=== PATIENT | female | born 1960 | race Caucasian/White ===

== ENCOUNTER 2017-04-25 21:40 | Inpatient (IN) ==
[2017-04-25] MEDS ORDERED: MORPHINE 2 MG/1 ML SYRINGE IV STA (22:15)
[2017-04-25] MEDS ORDERED: ONDANSETRON 4 MG/2 ML VIAL IV STA (22:15)
[2017-04-25] MEDS ORDERED: LORazepam 2 MG/1 ML VIAL IV ONE (22:15)
[2017-04-25 22:37] LABS: Basophils # 0.1 10*3/uL (0.0-0.2); Basophils % 0.4 % (0.0-0.8); Hemoglobin 15.9 GM/DL (12.0-16.0); Immature Granulocytes % 0.5 %; Immature Granulocytes Absolute 0.06 #; Lymphocytes % 8.4 % (21.3-54.2); Mean Corpuscular HGB Conc 35.3 GM/DL (32-36); Mean Corpuscular Hemoglobin 33 PG (27-34); Mean Corpuscular Volume 93.9 FL (87-102); Mean Platelet Volume 10.6 FL (9.6-12.0); Monocytes # 1.5 10*3/uL (0.11-0.8); Monocytes % 12.1 % (1.7-12.7); Neutrophils # 9.8 10*3/uL (1.4-7.4); Neutrophils % 78.6 % (38.7-73.9); Platelet Count 257 T/CUMM (130-400); Red Blood Count 4.79 MC/CUMM (3.8-5.5); Red Cell Distribution Width 12.7 % (9.3-17.3); White Blood Count 12.4 T/CUMM (4-12)
[2017-04-25] MEDS ORDERED: ONDANSETRON 4 MG/2 ML VIAL ONE (22:40)
[2017-04-25] MEDS ORDERED: LORazepam 2 MG/1 ML VIAL ONE (22:41)
[2017-04-25] MEDS ORDERED: MORPHINE 2 MG/1 ML SYRINGE ONE ×2 (22:41→22:44)
--- NOTE | 2017-04-25 22:43 | Emergency Department Note ---
Pradeep Tirado Hilary, am scribing for, and in the presence of, Justin Childers MD 22:32. Alvarado Tirado Robert M, MD, personally performed the services described in this documentation, ascribed by Daisy Fernández in my presence, and it is both accurate and complete . Arrival - Arrival Chief Complaint: Alcohol Intoxication Stated Complaint: ALCOHOL POISIONING ED Nursing Triage Note: Patient to triage with c/o N/V for the past 24 hours and muscle cramps. patient admits to drinking liqour heavily for the past 2 weeks. Patient has a history of alcohol abuse and inpatient treatment at [facility]. Mode of Arrival: Wheelchair Limitations: No Limitations Source: Patient, RN Notes Reviewed Time Seen by Provider: 04/25/17 22:09 - History of Present Illness HPI Narrative: Pt is a 56 y/o white female presenting to the ED with c/o abdominal pain and drinking problems which has been a chronic problem. Pt states that 2 days ago she started having abdominal pain, cramping and throwing up. She reports that she normally drinks a pint or more a day but her last drink was on 2 days ago. No other complaints or problems stated in the ED. Onset (ago): day(s) Consistency: constant Severity: mild Severity scale (1-10): 1 Quality: cramping Date of Last Menstrual Period: menopause Allergies/Adverse Reactions: Allergies Allergy/AdvReac Type Severity Reaction Status Date / Time No Known Allergies Allergy Unverified 04/25/17 21:49 Home Medications: Home Medications Medication Instructions Recorded Confirmed Type No Known Home Medications [No 04/25/17 04/25/17 History Known Home Medications] Review of System - Review of System 12 point system: reviewed and no additional remarkable complaints except as stated - Review of System Constitutional: Absent: fever Gastrointestinal: Present: abdominal pain, nausea, vomiting Psychiatric: Present: other (alcohol addiction) Medical,Surgical,& Family Hx - Medical History Cardio: History of: Hypertension Psychological: History of: Psychiatric/Substance Abuse Tx (alcohol) Gastrointestinal: History of: Pancreatitis - Social History Smoking Status: Never smoker Frequency of Alcohol Use: Frequently Type of Drug Use: Marijuana Exam Vital Signs: Vital Signs Temperature 97.0 F L 04/25/17 21:43 Pulse Rate 131 H 04/25/17 21:43 Respiratory Rate 16 04/25/17 22:06 Blood Pressure 113/91 04/25/17 21:43 O2 Sat by Pulse Oximetry 100 04/25/17 21:43 - General General appearance: alert, in no apparent distress, other (labile mood) - Head Head exam: Present: atraumatic, normocephalic - Eye Eye exam: Present: normal appearance, PERRL, EOMI - ENT ENT exam: Present: mucous membranes moist, TM's normal bilaterally. Absent: mucous membranes dry - Neck Neck exam: Present: full ROM, trachea midline. Absent: tenderness - Chest Chest inspection: Present: symmetric chest wall rise. Absent: tenderness - Respiratory Respiratory exam: Present: normal lung sounds bilaterally. Absent: respiratory distress - Cardiovascular Cardiovascular exam: Present: regular rate, normal rhythm, normal heart sounds. Absent: murmur, rubs, gallop - Abdominal Exam Abdominal exam: Present: soft, tenderness (midepigastic tenderness), guarding, normal bowel sounds. Absent: distention - Extremities Exam Extremities exam: Present: full ROM. Absent: tenderness - Back Exam Back exam: Present: full ROM. Absent: tenderness - Neurological Exam Neurological exam: Present: alert, oriented X3, CN II-XII intact. Absent: motor sensory deficit - Psychiatric Psychiatric exam: Present: normal affect, normal mood - Skin Skin exam: Present: warm, dry, intact, normal color. Absent: rash Course - Reevaluation(s) Reevaluation #1: [place] came and evaluated the patient. She refused to go. She remained shaky , tachycardic, and seems to be in early DTs although she is not having hallucinations yet. I will admit her to the hospitalist service. Time: 23:53 Results - Labs CBC & BMP: 04/25/17 22:30 04/25/17 22:30 Lab Results: I have reviewed the patients labs Labs: Lab Results WBC 12.4 T/CUMM (4-12) H 04/25/17 22:30 RBC 4.79 MC/CUMM (3.8-5.5) 04/25/17 22:30 Hgb 15.9 GM/DL (12.0-16.0) 04/25/17 22:30 Hct 45.0 VOL% (35.7-47.0) 04/25/17 22:30 MCV 93.9 FL (87-102) 04/25/17 22:30 MCH 33 PG (27-34) 04/25/17: MCHC 35.3 GM/DL (32-36) 04/25/17 22: RDW 12.7 % (9.3-17.3) 04/25/17:30 Plt Count 257 T/CUMM (130-400) 04/25/17: MPV 10.6 FL (9.6-12.0) 04/25/17 22:30 Neut % (Auto) 78.6 % (38.7-73.9) H 04/25/17 22: Lymph % (Auto) 8.4 % (21.3-54.2) L 04/25/17: [place] % (Auto) 12.1 % (1.7-12.7) 04/25/17: Eos % (Auto) 0.0 % (0.00-10.9) 04/25/17: Baso % (Auto) 0.4 % (0.0-0.8) 04/25/17: Neut # (Auto) 9.8 10*3/uL (1.4-7.4) H 04/25/17 22:30 Lymph # (Auto) 1.0 10*3/uL (1.4-4.0) L 04/25/17:30 [place] # (Auto) 1.5 10*3/uL (0.11-0.8) H 04/25/17:30 Eos # (Auto) 0.0 10*3/uL (0.0-0.87) 04/25/17: Baso # (Auto) 0.1 10*3/uL (0.0-0.2) 04/25/17: Immature Gran % 0.5 % 04/25/17: Nucleated RBC % 0.0 /100WBC 04/25/17: Immature Gran # 0.06 # 04/25/17: Nucleated RBCs # 0.00 10*3/uL 04/25/17:30 Platelet Estimate Normal 04/25/17 22:30 Anisocytosis 06/13/17 22:30 Sodium 133 MMOL/L (136-145) L 04/25/17 22:30 Potassium 3.6 MMOL/L (3.5-5.1) 04/25/17 22:30 Chloride 79 MMOL/L (98-107) L 04/25/17 22:30 Carbon Dioxide 31 MMOL/L (21-32) 04/25/17 22:30 Anion Gap 26.6 MMOL/L (5.0-15.0) H 04/25/17 22:30 BUN 34 MG/DL (7-18) H 04/25/17 22:30 Creatinine 1.70 MG/DL (0.55-1.02) H 04/25/17 22:30 GFR Calculation 33 ML/MIN 04/25/17:30 BUN/Creatinine Ratio 20.00 RATIO (6.00-20.00) 04/25/17 22:30 Glucose 146 MG/DL (74-106) H 04/25/17 22:30 Calculated Osmolality 276.4 MOS/KG (273-304) 04/25/17 22:30 Calcium 10.9 MG/DL (8.5-10.1) H 04/25/17 22:30 Magnesium 2.0 MG/DL (1.8-2.4) 04/25/17 22:30 Amylase 89 U/L (25-115) 04/25/17 22:30 Lipase 246.0 U/L (73-393) 04/25/17 22:30 Serum Alcohol < 15 MG/DL (<15) L 04/25/17 22:30 Disposition Clinical Impression: Alcohol withdrawal syndrome Case discussed with: patient, patient's family Disposition: Still a Patient Condition: Stable Time of Disposition: 23:57
[2017-04-25 22:57] LABS: Amylase 89 U/L (25-115); Blood Urea Nitrogen 34 MG/DL (7-18); Calcium 10.9 MG/DL (8.5-10.1); Glucose 146 MG/DL (74-106); Osmolality,Calculated 276.4 MOS/KG (273-304); Potassium 3.6 MMOL/L (3.5-5.1); Sodium 133 MMOL/L (136-145)
[2017-04-25 23:44] LABS: Platelet Estimate Normal
[2017-04-25] MEDS ORDERED: chlordiazePOXIDE 25 MG CAPSULE PO ONE (23:51)
[2017-04-26] MEDS ORDERED: THIAMINE INJ 100 MG, FOLIC ACID INJ 1 MG, MAGNESIUM SULF INJ 2 GM, MULTIVITAMIN INJ 10 ... IV ONE (00:02)
--- NOTE | 2017-04-26 00:24 | Hospitalist History & Physical ---
Assessment and Plan (1) Tachycardia Status: Acute Assessment and plan: Patient will be monitored in the intensive care unit. My concern is that this could be impending delirium tremens. Her cognitive function at this point is acceptable. She has already been started on Librium that will be continued on the unit. When I on her mental status. Stated about her liver function. If there is preexistent cirrhosis and portal shunting we should be careful with aggressive use of benzodiazepines because she can be pushed into portosystemic encephalopathy. Current Visit: Yes (2) Alcoholism Status: Acute Assessment and plan: Patient needs rehab. I have talked to her for some time in the emergency room. She is very much aware of this because she has had a rehab in the past. I will refer her to case management and social security benefits interviewer. Dr. Childers in the emergency room admission sending her to [facility] but she was reluctant to do so. Last rehab unit she went to was outside [place]. Current Visit: Yes (3) Acute kidney injury Status: Acute Assessment and plan: We will follow kidney function with rehydration that was giving her. Is now on a banana bag using D5 normal saline at 100 mL/h. Repeat BMP and magnesium in the morning alongside a repeat CBC. Current Visit: Yes (4) Alcohol withdrawal syndrome Status: Acute Assessment and plan: Patient will be put on Librium 25 mg 3 times a day after receiving 50 mg once. Again as mentioned above we should keep an eye on her mental status while she is on Librium. Should also have seizure precautions. She has had a seizure in the past but she is not taking any medications for these. Some mention of hypertension for which is not taking any medications on her blood pressure is not elevated. Current Visit: Yes (5) Abdominal pain Status: Acute Assessment and plan: This is mostly in the epigastrium on the right upper quadrant. Whether this is ulcers or liver issues is not clear. I will check liver function panel. Also check prothrombin time and PTT. Alcoholic hepatitis is a possibility given the extent of drinking a pint or more of vodka every day we should done until Monday when she could not drink anymore because of nausea vomiting and abdominal pain. She does not have any indices of pancreatitis at this time. Patient can be fed a regular diet as tolerated. Current Visit: Yes History of Present Illness Chief complaint: Abdominal pain/nausea/alcoholism with withdrawal syndrome History of present illness: Ms. Pearson is a 56 year old female female presenting to the ED with c/o abdominal pain and drinking problems which has been a chronic problem. Pt states that 2 days ago she started having abdominal pain, cramping and throwing up. She reports that she normally drinks a pint or more a day but her last drink was on 2 days ago. No other complaints or problems in the meantime. Patient is requesting to be put on IV fluids. She has been talked to regarding going to [facility] but she was reluctant to do so. However she is noted to be quite tachycardic and tremulous which is obviously the first signs of delirium tremens. Patient has no sounding psychotic at this time. Home Medications Medication Instructions Recorded Confirmed Type No Known Home Medications [No 04/25/17 04/25/17 History Known Home Medications] Allergies Allergy/AdvReac Type Severity Reaction Status Date / Time No Known Allergies Allergy Unverified 04/25/17 21:49 Medical,Surgical,& Family Hx - Medical History Cardio: History of: Hypertension Psychological: History of: Psychiatric/Substance Abuse Tx (alcohol) Gastrointestinal: History of: Pancreatitis - Social History Smoking Status: Never smoker Frequency of Alcohol Use: Frequently Type of Drug Use: Marijuana Review of systems: 12 point system assessment was done. Patient look to be well developed and preserved she is quite tremulous but makes sense in what she is saying. She is very tachycardic she does look slightly disheveled. He is under the chief complaint and history of presenting illness is what stands out in the review of system. Again a 12 point system assessment was done. Exam - Constitutional Vitals: Period Temp Pulse Resp BP Sys/Wilson Pulse Ox Last 24 Hr 97 F-97.0 F 131-131 16-16 113-113/91-91 100 General appearance: normal weight, other (Rather disheveled and tremulous) - Head Head exam: Present: normocephalic, atraumatic - Eye Eye exam: Present: EOMI, other (Anicteric sclera no conjunctival petechia) Pupils: Present: LANNY - ENT ENT exam: Present: normal exam, normal oropharynx - Neck Neck exam: Present: other (Supple neck midline trachea no adenopathy no thyromegaly) - Respiratory Respiratory exam: Present: other (Coarse bronchial sounds heard in the right midlung though the chest x-ray does not look suspicious for consolidation. No wheezing no rales no pleural rub) - Cardiovascular Cardiovascular exam: Present: other (Tachycardia with sinus control gallops no murmur) - GI/Abdominal GI/Abdominal exam: Present: normal bowel sounds, soft, other (Diffuse discomfort on palpation no masses felt in the abdomen no abdominal wall ecchymosis) - Extremities Exam Extremities exam: Present: full ROM, other (No acrocyanosis, clubbing of the digits) - Back Exam Back exam: Present: normal inspection - Neurological Exam Neurological exam: Present: alert, oriented X3, CN II-XII intact, other (Quite tremulous, her voice is also tremulous) - Psychiatric Psychiatric exam: Present: anxious - Skin Skin exam: Present: normal color, warm, dry, other (And came to general hygiene) Results - Labs CBC & BMP: 04/25/17 22:30 04/25/17 22:30 Lab Results: I have reviewed the past 24 hour labs (Noted a leukocytosis noted with a creatinine 1.7; I do not have a difference number)
[2017-04-26 00:40] LABS: Albumin 5.5 G/DL (3.4-5.0); Bilirubin,Direct 0.5 MG/DL (0.0-0.20); Bilirubin,Indirect 2.2 MG/DL (0.0-1.0); Bilirubin,Total 2.7 MG/DL (0.2-1.0); Total Protein 8.5 G/DL (6.4-8.3)
[2017-04-26] MEDS ORDERED: THIAMINE INJ 100 MG, FOLIC ACID INJ 1 MG, MULTIVITAMIN INJ 10 ML in DEXTROSE 5% NACL 0.... IV ONE (03:00)
[2017-04-26 03:51] LABS: HIV Antigen/Antibody Result Nonreactive (Nonreactive)
[2017-04-26 06:13] LABS: Basophils % 0.2 % (0.0-0.8); Hematocrit 42.5 VOL% (35.7-47.0); Hemoglobin 15.2 GM/DL (12.0-16.0); Immature Granulocytes Absolute 0.12 #; Lymphocytes # 1.2 10*3/uL (1.4-4.0); Lymphocytes % 9.4 % (21.3-54.2); Mean Corpuscular HGB Conc 35.8 GM/DL (32-36); Mean Corpuscular Hemoglobin 33 PG (27-34); Mean Platelet Volume 10.4 FL (9.6-12.0); Monocytes # 1.5 10*3/uL (0.11-0.8); Monocytes % 11.9 % (1.7-12.7); Neutrophils # 9.5 10*3/uL (1.4-7.4); Neutrophils % 77.5 % (38.7-73.9); Platelet Count 221 T/CUMM (130-400); Red Blood Count 4.57 MC/CUMM (3.8-5.5); Red Cell Distribution Width 12.8 % (9.3-17.3); White Blood Count 12.2 T/CUMM (4-12)
--- NOTE | 2017-04-26 06:14 | XRay Report ---
Portable chest Date: 04/26/2017 Clinical history: Chest pain, shortness of breath Comparison: 02/09/2012 Technique: Portable AP sitting chest Findings: The heart is normal in size. Chronic scarring in the lungs with minimal atelectasis at the lung bases. Calcified granulomata/nodes. No acute osseous findings. Impression: No acute cardiopulmonary pathology identified. PROCEDURE INTERPRETED AT [facility] DEPARTMENT OF RADIOLOGY Final Report Signed by: Dr. Ale Humphreys
--- NOTE | 2017-04-26 06:17 | XRay Report ---
Exam: XR KUB Date: 04/25/2017 10:15 PM Comparison: None Indication: Generalized abdominal pain Technique:[Supine abdomen] Findings: Nonobstructed bowel gas pattern. IUD projecting in the area of the uterus with nonspecific calcifications in the pelvis. Minimal dextroscoliosis of the lumbar spine with no acute osseous findings. Impression: No definite acute abdominal pathology identified. IUD. PROCEDURE INTERPRETED AT [facility] DEPARTMENT OF RADIOLOGY Final Report Signed by: Dr. Ale Humphreys
[2017-04-26 06:44] LABS: Magnesium 2.2 MG/DL (1.8-2.4); Osmolality,Calculated 277.5 MOS/KG (273-304); Potassium 3.1 MMOL/L (3.5-5.1)
[2017-04-26] MEDS: PANTOPRAZOLE 20 MG TABLET PO SCH (08:40)
[2017-04-26] MEDS ORDERED: chlordiazePOXIDE 25 MG CAPSULE PO SCH (09:00)
[2017-04-26] MEDS ORDERED: POTASSIUM CHLORIDE 20 MEQ TABLET PO ONE (09:06)
[2017-04-26] MEDS ORDERED: SODIUM CHLORIDE 0.9% 1,000 ML IV ONE (09:08)
[2017-04-26] MEDS ORDERED: PHENOL 1.4% THROAT SPRAY 177 ML BOTTLE PO PRN (09:11)
[2017-04-26] MEDS ORDERED: chlordiazePOXIDE 10 MG CAPSULE PO PRN (09:12)
[2017-04-26] MEDS ORDERED: LORazepam 2 MG/1 ML VIAL IV PRN (10:54)
[2017-04-26 13:33] LABS: Apearance,Urine Slightly Hazy (Clear); Bilirubin,Urine Negative (Negative); Blood, Urine Negative (Negative); Glucose,Urine (UA) Negative (Negative); Hyaline Casts,Urine 55 /LPF (0-3); Ketones,Urine 20 mg/dL (Negative); Mucus,Urine Occasional /LPF (Occasional); Nitrite,Urine Negative (Negative); Protein,Urine 100 MG/DL; RBC,Urine 2 /HPF (0-4); Squamous Epithelial Cell,Urine Occasional /HPF (0-10); Urine Color Yellow (Yellow); Urine Specific Gravity 1.018 (1.001-1.035); Urine Urobilinogen < 2.0 EU/DL (0.2-1.0); WBC,Urine 22 /HPF (0-6)
[2017-04-26] MEDS: chlordiazePOXIDE 10 MG CAPSULE PO SCH ×2 (15:10→21:02)
[2017-04-26] MEDS: cefTRIAXone 1,000 MG in SODIUM CHLORIDE 0.9% 100 ML IV SCH (17:38)
[2017-04-27 05:35] LABS: Basophils % 0.4 % (0.0-0.8); Eosinophils # 0.1 10*3/uL (0.0-0.87); Hematocrit 41.8 VOL% (35.7-47.0); Hemoglobin 14.3 GM/DL (12.0-16.0); Immature Granulocytes % 0.4 %; Immature Granulocytes Absolute 0.03 #; Lymphocytes # 2.1 10*3/uL (1.4-4.0); Lymphocytes % 26.1 % (21.3-54.2); Mean Corpuscular HGB Conc 34.2 GM/DL (32-36); Mean Corpuscular Hemoglobin 33 PG (27-34); Mean Corpuscular Volume 95.9 FL (87-102); Mean Platelet Volume 10.7 FL (9.6-12.0); Monocytes % 11.9 % (1.7-12.7); Neutrophils # 4.9 10*3/uL (1.4-7.4); Neutrophils % 60.2 % (38.7-73.9); Platelet Count 171 T/CUMM (130-400); Red Blood Count 4.36 MC/CUMM (3.8-5.5); Red Cell Distribution Width 12.7 % (9.3-17.3); White Blood Count 8.1 T/CUMM (4-12)
[2017-04-27 06:07] LABS: Albumin 3.7 G/DL (3.4-5.0); Bilirubin,Total 2.1 MG/DL (0.2-1.0); Potassium 3.1 MMOL/L (3.5-5.1); Total Protein 6.1 G/DL (6.4-8.3)
[2017-04-27] MEDS ORDERED: POTASSIUM CHLORIDE 20 MEQ TABLET PO PRN (06:26)
--- NOTE | 2017-04-27 09:28 | Hospitalist Progress Note ---
Assessment and Plan (1) Alcohol withdrawal syndrome Status: Acute Assessment and plan: On scheduled librium Last drink was Monday She has had DTs in the past Current Visit: Yes (2) Tachycardia Status: Resolved Current Visit: Yes (3) Alcoholism Status: Acute Assessment and plan: Patient could benefit from rehab social work assisting Current Visit: Yes (4) Acute kidney injury Status: Acute Assessment and plan: Resolved with IV hydration Current Visit: Yes (5) Abdominal pain Status: Acute Current Visit: Yes (6) Urinary tract infection Status: Acute Assessment and plan: Continue rocephin F/u urine culture Current Visit: Yes (7) Hypokalemia Status: Acute Assessment and plan: Replacing Current Visit: Yes Hospitalist: Subjective Interval history: No acute events overnight. Abdominal pain is improving. Unable to sleep due to headache. Exam - Constitutional Vitals: Period Temp Pulse Resp BP Sys/Wilson Pulse Ox Last 24 Hr 96.8 F-99.4 F 76-96 13-20 109-135/76-95 93-100 General appearance: normal weight - Head Head exam: Present: normocephalic, atraumatic - Eye Eye exam: Present: EOMI Pupils: Present: LANNY - ENT ENT exam: Present: normal exam - Neck Neck exam: Present: normal inspection - Respiratory Respiratory exam: Present: clear to auscultation bilaterally. Absent: rhonchi, wheezes - Cardiovascular Cardiovascular exam: Present: regular rate and rhythm - GI/Abdominal GI/Abdominal exam: Present: normal bowel sounds, soft. Absent: tenderness, rebound - Extremities Exam Extremities exam: Present: normal inspection - Back Exam Back exam: Present: normal inspection - Neurological Exam Neurological exam: Present: alert, oriented X3 - Psychiatric Psychiatric exam: Present: normal affect, normal mood - Skin Skin exam: Present: warm, intact Results - Labs CBC & BMP: 04/27/17 04:59 04/27/17 04:59
[2017-04-27] MEDS: chlordiazePOXIDE 10 MG CAPSULE PO SCH ×3 (10:31→20:37)
[2017-04-27] MEDS ORDERED: ACETAMINOPHEN 325 MG TABLET PO PRN (10:31)
[2017-04-27] MEDS: THIAMINE 100 MG TABLET PO SCH (12:05)
[2017-04-27] MEDS: PANTOPRAZOLE 20 MG TABLET PO SCH (12:06)
[2017-04-27] MEDS: cefTRIAXone 1,000 MG in SODIUM CHLORIDE 0.9% 100 ML IV SCH (16:08)
[2017-04-28 06:26] LABS: Basophils % 0.6 % (0.0-0.8); Eosinophils # 0.1 10*3/uL (0.0-0.87); Eosinophils % 1.6 % (0.00-10.9); Hematocrit 42.2 VOL% (35.7-47.0); Hemoglobin 14.4 GM/DL (12.0-16.0); Immature Granulocytes % 0.8 %; Immature Granulocytes Absolute 0.05 #; Lymphocytes # 1.8 10*3/uL (1.4-4.0); Lymphocytes % 29.3 % (21.3-54.2); Mean Corpuscular HGB Conc 34.1 GM/DL (32-36); Mean Corpuscular Hemoglobin 33 PG (27-34); Mean Corpuscular Volume 96.3 FL (87-102); Mean Platelet Volume 10.8 FL (9.6-12.0); Monocytes # 0.7 10*3/uL (0.11-0.8); Monocytes % 11.5 % (1.7-12.7); Neutrophils # 3.5 10*3/uL (1.4-7.4); Neutrophils % 56.2 % (38.7-73.9); Platelet Count 147 T/CUMM (130-400); Red Blood Count 4.38 MC/CUMM (3.8-5.5); Red Cell Distribution Width 12.1 % (9.3-17.3); White Blood Count 6.3 T/CUMM (4-12)
[2017-04-28 06:59] LABS: Calcium 9.3 MG/DL (8.5-10.1); Osmolality,Calculated 272.7 MOS/KG (273-304); Potassium 3.2 MMOL/L (3.5-5.1)
[2017-04-28] MEDS: chlordiazePOXIDE 10 MG CAPSULE PO SCH ×2 (09:28→14:48)
[2017-04-28] MEDS: THIAMINE 100 MG TABLET PO SCH (09:28)
[2017-04-28] MEDS: PANTOPRAZOLE 20 MG TABLET PO SCH (09:28)
[2017-04-28] MEDS ORDERED: POTASSIUM CHLORIDE 20 MEQ TABLET PO PRN (09:43)
[2017-04-28] MEDS: POTASSIUM CHLORIDE 20 MEQ TABLET PO PRN ×4 (10:30→17:05)
--- NOTE | 2017-04-28 15:17 | Discharge Summary ---
Hospital Course - Hospital Course Hospital Course: Patient was admitted on the above admit date for monitoring of possible delirium tremens associated with alcohol withdrawal syndrome. She was admitted to the ICU for monitoring and started on IV fluids with thiamine folate and multivitamin supplementation. She was additionally initiated on Librium as needed. She remained stable from a hemodynamic standpoint without any documentation of hypertension nor tachycardia while admitted. Alcohol cessation and rehab was discussed with the patient and was recommended to consult [facility] for further assistance however the patient's insurance [employer] would not cover the treatment provided by [facility]. As a result patient states that she would need to discuss with her other alternatives as he has not been eager to help financially due to failures of other outpatient programs in the past. She states that she is ready to go home and further have this discussion with her on the day of discharge she has remained hemodynamically stable she is cognitively intact without any signs of psychosis. She has not required scheduled doses of Librium but has had 3 doses since admission. She continues to have some mild tremors of the bilateral hands however per the patient this has markedly improved. Additionally, she was found to have a positive urine cx however asymptomatic of active infection. She' s been treated for an e. coli uti with ceftriaxone and will need to complete a 3 day course of antibiotics. She will be discharged home with librium prn as she has reached maximal benefit of this hospitalization. She understands that she will need to seek a plan to help her with continued sobriety. Diagnosis - Discharge Diagnosis (1) Alcohol withdrawal syndrome Status: Acute (2) Alcoholism Status: Chronic (3) Acute kidney injury Status: Resolved (4) Urinary tract infection Status: Acute (5) Hypokalemia Status: Chronic Discharge Plan - Discharge Data Disposition: Disch To Home/Self Care Condition at Discharge: Stable Discharge Diet: advance to your usual diet Activity: resume usual activities as tolerated Hygiene: no restrictions Weight Bearing at Discharge: full weight bearing - Discharge Medications New Nitrofurantoin Monohyd/M-Cryst [Nitrofurantoin [place]-Mcr 100 mg] 100 mg PO BID #8 capsule Pantoprazole Tab [Protonix Tab] 20 mg PO DAILY #30 tablet Potassium Chloride Cap/Tab [K Dur] 20 meq PO DAILY #30 tablet chlordiazePOXIDE [Librium] 10 mg PO TID PRN #10 capsule PRN Reason: Alcohol Withdrawal Thiamine Tab [Vitamin B1 Tab] 100 mg PO DAILY #30 tablet - Follow Up or Referral - Forms/Instructions Exam - Constitutional Vitals: Period Temp Pulse Resp BP Sys/Wilson Pulse Ox Last 24 Hr 97.6 F-98.5 F 83-116 18-20 108-131/58-83 94-99 Exam: General appearance: normal weight, only mildly tremulous.- Head Head exam: Present: normocephalic, atraumatic - Eye Eye exam: Present: EOMI, other (Anicteric sclera no conjunctival injection) - Respiratory Respiratory exam: Present: CTAB - Cardiovascular Cardiovascular exam: Present: Regular rate and rhythm. No murmur noted. - GI/Abdominal GI/Abdominal exam: Present: normal bowel sounds, soft, NTND - Extremities Exam Extremities exam: Present: full ROM, ambulates without difficulty - Neurological Exam Neurological exam: Present: alert, oriented X3, CN II-XII intact, only very mild tremors - Psychiatric Psychiatric exam: Present: calm and cooperative - Skin Skin exam: Present: normal color, warm, dry Discharge Results Labs on day of discharge: Labs from last 24 hours 04/28/17 04/28/17 05:39 05:39 WBC 6.3 RBC 4.38 Hgb 14.4 Hct 42.2 MCV 96.3 MCH 33 MCHC 34.1 RDW 12.1 Plt Count 147 MPV 10.8 Neut % (Auto) 56.2 Lymph % (Auto) 29.3 [place] % (Auto) 11.5 Eos % (Auto) 1.6 Baso % (Auto) 0.6 Neut # (Auto) 3.5 Lymph # (Auto) 1.8 [place] # (Auto) 0.7 Eos # (Auto) 0.1 Baso # (Auto) 0.0 Immature Gran % 0.8 Nucleated RBC % 0.0 Immature Gran # 0.05 Nucleated RBCs # 0.00 Sodium 138 Potassium 3.2 L Chloride 96 L Carbon Dioxide 30 Anion Gap 15.2 H BUN 11 Creatinine 0.60 GFR Calculation 100 BUN/Creatinine Ratio 18.00 Glucose 88 Calculated Osmolality 272.7 L Calcium 9.3 Magnesium 2.0 DS: Provider Date of admission: 04/26/17 00:16 Primary care physician: . No PCP Attending physician on admission: Js Youssef MD Consults: 04/26/17 00:17 Consult to Case Mgmt/Social Srvs [CONS] Routine Reason for Case Mgmt/Social Srvs: Rehab 04/26/17 10:55 Consult to Case Mgmt/Social Srvs [CONS] Routine Reason for Case Mgmt/Social Srvs: Other Consult Comment: alchol rehab Discharging clinician: Pratibha Neff MD Expected date of discharge: 04/28/17
[2017-04-28] MEDS: cefTRIAXone 1,000 MG in SODIUM CHLORIDE 0.9% 100 ML IV SCH (15:45)
[2017-04-28 16:03] VITALS: BP 111/87
== END 2017-04-28 17:50 | disposition home or self-care (01) | DRG 897 ==
LOC: N.ED 21:40 → N.EDINP 04-26 00:16 → SUATTDRO 04-26 00:16 → N.CC 04-26 01:41 → N.2E 04-26 14:24 → N.CC 04-26 14:49 → N.2E 04-26 15:57
PROVIDERS: ADMIT Internal Medicine Infectious Disease; ATTEND Internal Medicine